=== PATIENT | male | born 1960 | race Caucasian/White ===

== ENCOUNTER 2019-11-23 10:20 | Inpatient (IN) ==
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
[~2019-11-23 10:20] MED LIST: ACETAMINOPHEN 500 MG TAB PO SCH; CEFAZOLIN 3000MG 72.5 ML IV SCH; CeleBREX 200 MG CAP PO SCH; FAMOTIDINE 20 MG TAB PO SCH; GABAPENTIN 600 MG DOSE PO SCH; LR 500ML BOLUS, THEN 15ML/HR IV SCH; METOCLOPRAMIDE HCL 10 MG TABLET PO SCH; ROPIVACAINE 0.5% HCL/PF 150 MG, BUPIVACAINE 0.5% MPF 30 ML, EPINEPHrine 30MG/30ML (OR U... INSTIL SCH; TRANEXAMIC ACID 1,000 MG **IV Intra-op IV SCH; TRANEXAMIC ACID 1,000 MG **IV Pre-op IV SCH; dexAMETHasone 4 MG TAB PO SCH
[2019-11-23] MEDS ORDERED: ROPIVACAINE 0.5% 5 MG/ML 30 ML VIAL ONE (10:34)
[2019-11-23] MEDS ORDERED: EPINEPHrine INJ 1 MG/ML AMP ONE (10:35)
[2019-11-23] MEDS ORDERED: BUPIVACAINE 0.5 % 5 MG/1 ML PF 10ML VIAL ONE (10:35)
[2019-11-23] MEDS ORDERED: fentaNYL citrate 100 MCG/2 ML VIAL ONE (10:52)
[2019-11-23] MEDS ORDERED: MIDAZOLAM HCL 1 MG/ML 2ML VIAL ONE ×2 (10:52)
[2019-11-23] MEDS ORDERED: fentaNYL citrate 100 MCG/2 ML VIAL IV PRN (11:49)
[2019-11-23] MEDS ORDERED: HYDROmorphone INJ 1 MG/ML SYRINGE IV PRN (11:49)
[2019-11-23] MEDS ORDERED: ONDANSETRON INJ 2 MG/ML 2 ML VIAL IV PRN ×2 (11:49→16:07)
[2019-11-23] MEDS ORDERED: ATROPINE SULFATE 0.1 MG/ML 10ML SYR IV PRN (11:49)
[2019-11-23] MEDS ORDERED: ePHEDrine sulfate 50 MG/ML AMP IV PRN (11:49)
[2019-11-23] MEDS ORDERED: BACITRACIN INJ 50,000 UNIT VIAL ONE (11:59)
[2019-11-23] MEDS ORDERED: ORTHO JOINT ANESTHETIC ONE (11:59)
--- NOTE | 2019-11-23 12:16 | History & Physical Bridge Note ---
Date of Service November 23, 2019 History & Physical Bridge Note I have examined the patient, reviewed the History & Physical and in the interval since the performance of the History & Physical I have noted the following changes of clinical significance: no changes noted
[2019-11-23] MEDS ORDERED: PROPOFOL IV EMULSION 10 MG/ML 20 ML VIAL IV ONE ×3 (13:01→13:45)
[2019-11-23] MEDS ORDERED: LIDOCAINE HCL 2% 2 ML VIAL/AMP(20MG/ML) INFIL ONE (13:01)
--- NOTE | 2019-11-23 14:19 | Post Operative Brief Note ---
Immediate Post Op Note v1 Date of Surgery November 23, 2019 Pre & Post Diagnosis Operation Date: 09/28/19 11:10 <No data on this case meets the specified criteria> Operation Date: 11/23/19 13:00 Pre-Op Diagnosis: Left Knee Degenerative Joint Disease Post-Op Diagnosis: Left Knee Degenerative Joint Disease I identified the patient and participated in the time-out.: Yes Procedure Operation Date: 09/28/19 11:10 <No data on this case meets the specified criteria> Operation Date: 11/23/19 13:00 Actual Procedures p Left Total Knee Arthroplasty(Left) - Jitendra Robles DO Surgeon Jitendra Robles DO Party Host Marvin Villalobos Estimated Blood Loss 45 Findings Consistent with Post-Op Diagnosis Fluids 1350 cc LR Specimens Proximal tibia and distal femur bone cuts. Anesthesia Type Spinal MAC Complications none Disposition Disposition: Recovery Room Overlapping Procedure I was present for: the critical portions of procedure. I was immediately available: during the entire case. Back up surgeon: was not required during procedure.
--- NOTE | 2019-11-23 14:23 | Operative Report ---
Post Operative Report Pre & Post Diagnosis Operation Date: 09/28/19 11:10 <No data on this case meets the specified criteria> Operation Date: 11/23/19 13:00 Pre-Op Diagnosis: Left Knee Degenerative Joint Disease Post-Op Diagnosis: Left Knee Degenerative Joint Disease I identified the patient and participated in the time-out.: Yes Procedure Operation Date: 09/28/19 11:10 <No data on this case meets the specified criteria> Operation Date: 11/23/19 13:00 Actual Procedures p Left Total Knee Arthroplasty(Left) - Jitendra Robles DO Surgeon Jitendra Robles DO Department Manager Marvin Villalobos Estimated Blood Loss 45 Findings Consistent with Post-Op Diagnosis Fluids 1350cc LR Specimens Proximal tibia and distal femur bone cuts Anesthesia Type Spinal MAC Complications none Disposition Disposition: Recovery Room Indications The patient is a 59-year-old male presents with long history of severe left knee tricompartmental DJD and failed outpatient conservative treatments including NSAIDs, bracing, injections and home walking/exercise program. The patient's symptoms have progressed to the point where it has been difficult to perform normal activities of daily living. I have indicated the patient for a left total knee arthroplasty, the risks and benefits and complications of the procedure include but are not limited to infection bleeding damage to bone, nerves, vessels, surrounding soft tissue, blood clots, loss of function, leg length discrepancy, dislocation, failure of the components, need for additional surgery and . The patient wished to proceed with surgery at this time and informed consent was obtained. Appropriate clearances were obtained. Description of Procedure The patient was taken to the operating room and appropriate spinal anesthesia was administered. She was placed supine on the operating room table. A foot roll was placed so we could flex the knee during the procedure as needed. A pneumatic tourniquet was placed on the proximal aspect of the thigh. The left lower extremity was prepped and draped in usual sterile fashion. A timeout was performed, patient and site david verified and IV antibiotics given. The leg was elevated, exsanguinated with Esmarch bandage. Pneumatic tourniquet was raised to 300 mmHg. A longitudinal midline incision was made over the anterior knee. Skin was incised sharply and subcutaneous flaps were elevated. Incision was made through the medial retinaculum extended up in the mid third of the quadriceps tendon and extended down to the medial tibial tubercle. The [employer]hew Journey 2.0 total knee arthroplasty system was used using [facility] MRI templating and her femur sized for a 8, tibial sized for a 7. To expose the knee the infrapatellar fat pad was resected. The lateral synovial bands were released. The cruciate ligaments were resected. The meniscal remnants were resected. The fat pad over the anterior femur just above the articular surface for placement of the component in that area was resected. The knee was flexed and retractors were placed and the custom femoral cutting block was pinned in position and the distal femoral cut was made. Next, the femoral cutting guide was removed and the size 8, 5-in-1 cutting block was pinned into place and the anterior, posterior and chamfer cuts were made. The 5-in-1 cutting block was removed. Next, attention was taken back to the tibia which was subluxed anteriorly and the custom tibial cutting block was pinned in position and the proximal tibial cut was made. The tibia guide was removed and proximal tibial bone fragment removed utilizing straight osteotome, electrocautery and mariaelena. Laminar electronic device repairer was placed laterally and the ACL and PCL were removed followed by the medial meniscus and posterior medial osteophytes. Aquamantys was utilized for any posterior medial bleeders and Orthomix injected into the posterior medial capsule. A laminar electronic device repairer was then placed in the medial compartment and the lateral meniscus and posterior osteophytes were removed. Aquamantys was utilized for any posterior lateral bleeders and Orthomix injected into the posterior lateral capsule. Next, ligamentous balance was assessed in extension and flexion utilizing spacer block and drop peggy. At this time, the tibia was then resubluxed and the 7 tibial trial was placed in position, the decision was made to utilize a size 8 tibia trial which provided better fit of the proximal tibia with appropriate external rotation in relationship to the tibial tubercle. The tibial drill and punch for the stem was used. Next the 8 femoral trial was inserted, centered and the notch cutting devices were used to finish prepping the femur. A trial 10 mm tibial articulating surface was inserted assessed ligamentous balance, the tibial size was increased sequentially testing for knee balance in full ROM, varus/valgus. The 10 trial insert gave balanced ligaments through full range of motion. At this time the knee was extended and a subperiosteal peel lateral release was performed around the patella. Patella width was measured and the patella was prepped utilizing free hand technique and the 3 drill holes were made for the pegs. The excess lateral facet was beveled off to prevent any impingement. A 38 mm oval patella button was placed and the patella tracked centrally. The trials were removed and the knee was copiously irrigated with pulsatile lavage antibiotic solution with bacitracin. The final components were then cemented into place and trial tibial articulating surface inserted. Final components were the 4 Oxinium posterior stabilized Christ[employer]hew Journey 2.0 left femoral component, size 3 primary tibial baseplate and 32mm patella. Once the cement cured, we trialed once more with the 10 mm tibial articulating surface and found the knee to be stable throughout full ROM. The trial component was removed and the final 10 mm tibial articular surface was inserted. Mariella-incisional soft tissue was injected utilizing [place] Orthomix which includes a combination of Ropivicaine 0.5% 150mg, Bupivicaine 0.5%/Epinephrine 1:200,000 30ml, Toradol 30mg, Dexamethasone 4mg, Ketamine 10mg, Clonidine 100mcg and NSS 30ml solution. A Betadine soak was performed. After 3 minutes, the hip was once more irrigated with copious sterile saline solution with bacitracin. The medial retinaculum were closed with interrupted [id number] #1 Vicryl sutures. The knee was taken through full range of motion and repair was secure. Subcutaneous tissues were closed with interrupted 2-0 Vicryl sutures followed by 3-0 V lock and then the skin was closed with Prineo Dermabond skin closure system. The sterile dressings were applied and an Benny wrap from the foot to thigh. Tourniquet was let down at 111 minutes and the patient had good capillary refill to the extremity. The patient tolerated the procedure well and was taken to the PACU in stable condition. Due to the complex nature of the procedure, the entire surgery was performed with the operational assistance of Marvin Villalobos PA-C. The interior design assistant, under direct supervision, was involved in the actual performance of all aspects of the surgical procedure including patient positioning, hemostasis, tissue retraction, instrument management and wound closure. I attest to the content of the Intraoperative Record and any orders documented therein. Any exceptions are noted below.
--- NOTE | 2019-11-23 15:18 | XRay Report ---
XR knee LT 1 or 2V routine CLINICAL HISTORY: Surgical Post Op COMPARISON: None FINDINGS: Alignment of the total left knee arthroplasty is anatomic. There is no periprosthetic frac ture or unexpected radiopaque foreign body. IMPRESSION: Expected findings following total left knee arthroplasty. ACT 112: Negative or not required by law. Electronically signed by: Arpit Landa M.D. 11/23/2019 3:16 PM
--- NOTE | 2019-11-23 15:56 | Anesthesiology Progress Note ---
Date of Service November 23, 2019 Anesthesia Post Procedure Vital Signs Vital Signs: Temp Pulse Pulse Resp BP Pulse Ox 11/23/19 15:30 36.4 C L 72 16 147/88 H 94 11/23/19 15:20 36.4 C L 73 16 134/81 94 11/23/19 15:10 73 16 118/76 94 11/23/19 15:00 80 16 126/84 94 11/23/19 14:50 36.3 C L 16 131/77 96 11/23/19 11:05 37 C 66 18 158/99 H 97 Transfer of Care Handoff Completed per policy Notes Mental Status: alert / awake / arousable Patient Amnestic to Procedure: Yes Nausea / Vomiting: adequately controlled Pain: adequately controlled Airway Patency, RR, SpO2: stable & adequate BP & HR: stable & adequate Hydration State: stable & adequate Neuraxial Anesthesia: was administered and sensory block is resolving Anesthetic Complications: no major complications apparent and Pt Satisfied with anesthetic care
[2019-11-23] MEDS ORDERED: NALOXONE HCL 0.4 MG/1 ML VIAL/CARP IV PRN (16:07)
[2019-11-23] MEDS ORDERED: bisacodyL 10 MG SUPP PR PRN (16:07)
[2019-11-23] MEDS ORDERED: METOCLOPRAMIDE HCL INJ 5 MG/ML 2 ML VIAL IV PRN (16:07)
[2019-11-23] MEDS ORDERED: MAGNESIUM HYDROXIDE SUSP 30 ML UDC PO PRN (16:07)
[2019-11-23] MEDS ORDERED: HYDROmorphone INJ 0.5 MG/0.5 ML SYR IV PRN (16:07)
[2019-11-23] MEDS: SODIUM CHLORIDE 0.9% 1000ML 1,000 ML IV SCH (17:16)
[2019-11-23] MEDS: KETOROLAC TROMETHAMINE 15 MG/ML VIAL IV SCH ×2 (17:17→21:51)
[2019-11-23] MEDS ORDERED: CEFAZOLIN 3000MG/72.5 ML BAG IV SCH (20:00)
--- NOTE | 2019-11-23 20:38 | Orthopedic Progress Note ---
Date of Service November 23, 2019 Assessment & Plan (1) Degenerative joint disease of left knee: s/p L TKA -ancef x 24 -DVT ppx: SCDs, TEDs, ASA BID -WBAT LLE -PT/OT -PO XR demonstrates well aligned well fixed total knee prothesis, without fracture dislocation -am labs -DC planning Admission and Anticipated Discharge Date Admission Date: November 23, 2019 Subjective Post Operative Progress Note Patient seen sitting up in bed, comfortable, denies complaints, pain well controlled, no acute issues. Still feeling effects of spinal anesthesia Review of Systems Review of Systems: All systems reviewed & are unremarkable except as noted in HPI & below Constitutional: as per Subjective / HPI Physical Exam Physical Exam: LLE PE limited secondary to spinal anesthesia, +2 DP pulse, compartments soft NT, dressing CDI. Constitutional: WD/WN, vitals as above Results & Data ([facility]) Vital Signs (Past 12 Hours) Vital Signs Temp Pulse Pulse Pulse Resp BP Pulse Ox 11/23/19 18:54 36.6 C 86 16 138/90 92 11/23/19 18:20 87 16 137/87 100 11/23/19 16:42 36.5 C 77 16 154/117 H 100 11/23/19 16:16 36.4 C L 65 16 163/104 H 97 11/23/19 15:49 36.3 C L 73 15 162/99 H 98 11/23/19 15:30 36.4 C L 72 16 147/88 H 94 11/23/19 15:20 36.4 C L 73 16 134/81 94 11/23/19 15:10 73 16 118/76 94 11/23/19 15:00 80 16 126/84 94 11/23/19 14:50 36.3 C L 16 131/77 96 11/23/19 11:05 37 C 66 18 158/99 H 97
[2019-11-23] MEDS ORDERED: SENNA 8.6 MG TAB PO SCH (21:00)
[2019-11-23] MEDS ORDERED: LOSARTAN POTASSIUM 50 MG TAB PO SCH (21:00)
[2019-11-23] MEDS: ACETAMINOPHEN 500 MG TAB PO SCH (21:37)
[2019-11-23] MEDS: DOCUSATE SODIUM 100 MG CAP PO SCH (21:37)
[2019-11-23] MEDS: OXYCODONE HCL IR 5 MG TAB (IMMEDIATE RELEASE) PO PRN (21:55)
[2019-11-23] MEDS: CEFAZOLIN 3,000 MG in DEXTROSE 5% 50 ML IV SCH (22:05)
[2019-11-24] MEDS: SODIUM CHLORIDE 0.9% 1000ML 1,000 ML IV SCH (02:19)
[2019-11-24] MEDS: OXYCODONE HCL IR 5 MG TAB (IMMEDIATE RELEASE) PO PRN (04:40)
[2019-11-24] MEDS: CEFAZOLIN 3,000 MG in DEXTROSE 5% 50 ML IV SCH (04:40)
[2019-11-24] MEDS: KETOROLAC TROMETHAMINE 15 MG/ML VIAL IV SCH ×2 (05:20→10:31)
[2019-11-24] MEDS: ACETAMINOPHEN 500 MG TAB PO SCH ×2 (05:21→13:37)
[2019-11-24 06:52] LABS: Hematocrit (blood only) 39.6 % (42-52); Hemoglobin 13.4 g/dL (14.0-18.0); Mean Corpuscular Hemoglobin 30.5 pg (25-34); Mean Corpuscular Hgb Conc 33.8 g/dL (32-36); Mean Corpuscular Volume 90.2 fL (80-100); Mean Platelet Volume 11.4 fL (7.4-10.4); Platelet Count 195 K/uL (130-400); RDW Standard Deviation 42.6 fL (36.4-46.3); Red Blood Count 4.39 M/uL (4.7-6.1); White Blood Count 15.23 K/uL (4.8-10.8)
[2019-11-24 07:28] LABS: BUN Creatinine Ratio 18.3 (10-20); Est GFR (African American) 85.1; Est GFR (Non-African American) 73.4
--- NOTE | 2019-11-24 07:51 | Anesthesiology Progress Note ---
Date of Service November 24, 2019 Anesthesia Post Procedure Vital Signs Vital Signs: Temp Pulse Pulse Pulse Resp BP Pulse Ox 11/24/19 07:05 36.5 C 77 18 131/81 92 11/23/19 23:05 36.5 C 96 H 20 131/83 93 11/23/19 18:54 36.6 C 86 16 138/90 92 11/23/19 18:20 87 16 137/87 100 11/23/19 16:42 36.5 C 77 16 154/117 H 100 11/23/19 16:16 36.4 C L 65 16 163/104 H 97 11/23/19 15:49 36.3 C L 73 15 162/99 H 98 11/23/19 15:30 36.4 C L 72 16 147/88 H 94 11/23/19 15:20 36.4 C L 73 16 134/81 94 11/23/19 15:10 73 16 118/76 94 11/23/19 15:00 80 16 126/84 94 11/23/19 14:50 36.3 C L 16 131/77 96 11/23/19 11:05 37 C 66 18 158/99 H 97 Pain Intensity Left Knee: Pain Intensity: 2 Notes Mental Status: alert / awake / arousable and participated in evaluation Patient Amnestic to Procedure: Yes Nausea / Vomiting: adequately controlled Pain: adequately controlled Airway Patency, RR, SpO2: stable & adequate BP & HR: stable & adequate Hydration State: stable & adequate Neuraxial Anesthesia: was administered and sensory block resolved Anesthetic Complications: no major complications apparent
[2019-11-24] MEDS: DOCUSATE SODIUM 100 MG CAP PO SCH (08:14)
[2019-11-24] MEDS ORDERED: MULTIVITAMIN TAB PO SCH (09:00)
[2019-11-24] MEDS ORDERED: ASPIRIN 325 MG ECTAB PO SCH (09:00)
--- NOTE | 2019-11-24 10:08 | Orthopedic Progress Note ---
Date of Service November 24, 2019 Assessment & Plan (1) Degenerative joint disease of left knee: s/p L TKA POD#1 -ancef x 24 -DVT ppx: SCDs, TEDs, ASA BID -WBAT LLE -PT/OT -PO XR demonstrates well aligned well fixed total knee prothesis, without fracture dislocation -am labs - as above, hgb 13.4 -DC planning - home with HH Admission and Anticipated Discharge Date Admission Date: November 23, 2019 Subjective Post Operative Progress Note Patient seen sitting up in bed, comfortable, denies complaints, pain well controlled, no acute issues. Denies F/C/N/V/SOB/CP. Review of Systems Review of Systems: All systems reviewed & are unremarkable except as noted in HPI & below Constitutional: as per Subjective / HPI Physical Exam Physical Exam: LLE NVSI +EHL/FHL/TA/GS SILT grossly, +2 DP pulse, compartments soft NT, dressing cdi. Constitutional: WD/WN, vitals as above Results & Data (MN) Vital Signs (Past 12 Hours) Vital Signs Temp Pulse Resp BP Pulse Ox 11/24/19 07:05 36.5 C 77 18 131/81 92 11/23/19 23:05 36.5 C 96 H 20 131/83 93 Laboratory Results 11/24/19 11/24/19 11/24/19 Range/Units 06:24 06:24 06:24 WBC 15.23 H (4.8-10.8) K/uL RBC 4.39 L (4.7-6.1) M/uL Hgb 13.4 L (14.0-18.0) g/dL Hct 39.6 L (42-52) % MCV 90.2 (80-100) fL MCH 30.5 (25-34) pg MCHC 33.8 (32-36) g/dL RDW Std Deviation 42.6 (36.4-46.3) fL RDW Coeff of [place] 13.0 (11.5-14.5) % Plt Count 195 (130-400) K/uL MPV 11.4 H (7.4-10.4) fL Sodium 142 (136-145) mmol/L Potassium 4.0 (3.5-5.1) mmol/L Chloride 111 H (98-107) mmol/L Carbon Dioxide 24 (21-32) mmol/L Anion Gap 7.0 (3-11) BUN 20 H (7-18) mg/dl Creatinine 1.09 (0.6-1.4) mg/dl Est Cr Clr Drug Dosing 108.0 ml/min Est GFR ( Amer) 85.1 Est GFR (Non-Af Amer) 73.4 BUN/Creatinine Ratio 18.3 (10-20) Glucose 137 H (70-99) mg/dl Calcium 8.0 L (8.5-10.1) mg/dl Hepatitis C Ab Screen Pending Blood Type Antibody Screen 11/23/19 Range/Units 11:06 WBC (4.8-10.8) K/uL RBC (4.7-6.1) M/uL Hgb (14.0-18.0) g/dL Hct (42-52) % MCV (80-100) fL MCH (25-34) pg MCHC (32-36) g/dL RDW Std Deviation (36.4-46.3) fL RDW Coeff of [place] (11.5-14.5) % Plt Count (130-400) K/uL MPV (7.4-10.4) fL Sodium (136-145) mmol/L Potassium (3.5-5.1) mmol/L Chloride (98-107) mmol/L Carbon Dioxide (21-32) mmol/L Anion Gap (3-11) BUN (7-18) mg/dl Creatinine (0.6-1.4) mg/dl Est Cr Clr Drug Dosing ml/min Est GFR ( Amer) Est GFR (Non-Af Amer) BUN/Creatinine Ratio (10-20) Glucose (70-99) mg/dl Calcium (8.5-10.1) mg/dl Hepatitis C Ab Screen Blood Type O Positive Antibody Screen NEGATIVE
--- NOTE | 2019-11-24 10:08 | Discharge Summary ---
Date of Service November 24, 2019 Admission HPI Per Admitting Provider The patient is a 59 year old male who presents with complaints of severe left knee pain and DJD. The patient has failed outpatient conservative treatments to this point which included NSAIDs, IA corticosteroid and COLVIN injections, PT and a home exercise/walking program. The patient's pain and limited function have progressed to the point where they severely hinder their activities of daily living and they no longer tolerate exercise programs. They are requesting to proceed with total knee replacement surgery. Principal Diagnosis Left total knee replacement Discharge Exam LLE NVSI +EHL/FHL/TA/GS SILT grossly, +2 DP pulse, compartments soft NT, dressing cdi. Constitutional WD/WN, vitals as above Discharge Data Allergies Allergy/AdvReac Type Severity Reaction Status Date / Time hydrocodone AdvReac Mild Hallucinati Verified 11/23/19 11:53 ng Consultations 11/23/19 16:07 Consult Case Management - Discharge Planning Routine Procedures Performed Operation Date: 09/28/19 11:10 <No data on this case meets the specified criteria> Operation Date: 11/23/19 13:00 Actual Procedures p Left Total Knee Arthroplasty(Left) - Jitendra Robles DO Ordered Studies 11/23/19 05:00 US guide needle placement Stat 11/23/19 12:03 US - OR guided needle placemen Routine Hospital Course (1) Degenerative joint disease of left knee: The patient is a 59 -year-old male who presents with long standing history of severe left knee DJD and failed outpatient conservative treatments. The patient's symptoms have progressed to the point where it has been difficult to perform even normal activities of daily living. I indicated the patient for a left total knee arthroplasty, the risks, benefits and complications of the procedure include but not limited to infection, bleeding, damage to bone, nerves, vessels, surrounding soft tissue, may develop blood clots, loss of function, leg length discrepancy, dislocation, failure of the components, loosening of the components, the need for additional surgery and . The patient wished to proceed with surgery at this time and informed consent was obtained. Hospital Course: On 11/23/19 the patient was taken to the operating room, adequate anesthesia administered and underwent a left total knee arthroplasty. The patient tolerate d the procedure well and was taken to the PACU in stable condition. Post- operatively the patient was started on a DVT ppx medication and given appropriate IV antibiotics. Consults were placed to physical therapy, occupational therapy and case management. On POD#1, the patient did well overnight and their pain was well controlled. Labs were drawn and the Hgb was 13.4. The patient progressed well with PT. Dressings were changed at this time and the incision was clean, dry and intact. The patients hospital stay was relatively uneventful and they were deemed stable by the orthopedic team and consultants to be discharged home with HH on 11/24/19. Discharge Instructions: Upon discharge the patient may weight bear as tolerates through their operative extremity. They were instructed to keep the incision clean and dry at all times. The patient may shower but should not submerge the incision, avoid bathing, pools and hot tubes. The patient was given a script for pain medication and should take as instructed. The patient was given a script for DVT ppx 325mg ASA BID and should take as directed. The patient was instructed to not drive or travel for long distances until cleared to do so. If the patient develops any symptoms of fevers, chills, nausea, vomiting, increased redness, swelling, pain or drainage from the surgical site, they should notify the office and/or proceed to the nearest emergency room. The patient should follow up in 10-14 days after surgery for their routine post-operative follow-up appointment and should call the office to confirm the date and time. s/p L TKA POD#1 -ancef x 24 -DVT ppx: SCDs, TEDs, ASA BID -WBAT LLE -PT/OT -PO XR demonstrates well aligned well fixed total knee prothesis, without fracture dislocation -am labs - as above, hgb 13.4 -DC planning - home with Total Time Total Time Spent Total Time Spent (In Minutes): 30 Discharge Plan Discharge Items Patient Disposition: Home - Home Health Services Reason For Visit: Left Knee Osteoarthritis Discharge Diagnosis: Left total knee replacement -Left knee DJD Condition on Discharge: Good Activity: Per Instructions section Lifting: Wait until after follow-up appointment Bathing: Keep incision dry Bathing Comment: No bathing, pools or hot tubs. Sexual Activity: Wait until after follow-up appointment Exercise/Sports: Wait until after follow-up appointment Driving/Machine Use: No driving. Weightbearing: Full weightbearing Non-emergency contact: Primary Care Provider and Surgeon Call non-emergency contact if: you have any medication questions, your symptoms worsen, your pain is not controlled, your pain is worsening, your pain is unusual for you, your pain is concerning for you, you have a fever, your temperature is above 101, your wound has increased redness, your wound has increased drainage and your wound pain has increased Follow-up/Referrals: Lucio Damian MD [Primary Care Provider] - Diet: Regular Addtl Attending Provider Instructions: ACTIVITY RECOMMENDATIONS: SELF CARE INSTRUCTIONS AFTER TOTAL KNEE REPLACEMENT A. You may need to continue a physical therapy program after discharge from the hospital. There are several options available to you. Your doctor will assist you in selecting the best one for you. 1. An out-patient facility 2 to 3 times a week for therapy or home therapy. 2. Continue working on all exercises taught to you in the hospital. Your goals should be to increase bending of your knee to 90 degrees and beyond and to fully straighten your knee. B. You may progress at your own pace from walking with a walker or crutches to a cane; then to no assistive devices. C. Make walking a part of your daily routine. Be up as much as comfortable with rest periods throughout the day. Rest with leg elevation is very important. Use the ice wrap frequently for the first 3-4 weeks. D. There are no restrictions on activities. 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 E. Wear the long elastic stockings (BARRETT hose) 20 hours a day for 2 weeks after surgery. They can be removed several times a day for laundering and for a bath. F. You may shower, no tub baths until cleared by your doctor. SPECIAL CARE INSTRUCTIONS: VERY IMPORTANT TO READ AND REVIEW A. There are a few signs you need to watch for after you are home. Call [facility] if you notice any of the followin. Increased severe knee pain. Some pain is expected especially when you exercise. 2. Increased swelling in your leg or knee; pain or swelling of the calf muscle in either lower leg. 3. Any fluid drainage from the incision. 4. Shortness of breath or chest pain. B. Please call [facility] at if you have any concerns or questions about your operation or recovery. The doctor or his nurse will return your call promptly. C. You must take antibiotics before dental work, bladder, bowel or other surgery. Your doctor will provide you with a permanent care to carry describing this precaution. IMPORTANT: * REMEMBER TO TAKE ASPIRIN, 325 MG, TWICE DAILY FOR 4 WEEKS UNLESS OTHERWISE DIRECTED. THIS IS YOUR BLOOD THINNER. * HIGH RISK PATIENTS MAY BE PRESCRIBED A STRONGER BLOOD THINNER. THIS WILL BE PROVIDED AT DISCHARGE. * CALL IF INCREASED PAIN, REDNESS, DRAINAGE OR FEVER GREATER THAT 101. * WEAR BARRETT HOSE 20 HOURS PER DAY FOR 2 WEEKS. *DERMABOND Prineo- This is a mesh tape dressing that is covered with glue. It should remain in place until the incision is properly healed, usually 10-14 days. This dressing is designed to naturally slough off. You may trim the excess mesh tape as it peels off. Incision may be briefly wet in a shower. Dry immediately by blotting with a clean, dry towel. Do not bath or swim until instructed by your doctor. Do not scratch, rub, or pick at the dressing. Do not apply any topical ointments or lotions until dressing is completely removed and/or instructed by your doctor. There may be a small piece of suture material at one end of your incision. Do not pull or trim this. If it is bothersome or catching on clothing, you may cover it with a band-aid. IF INCISION IS LEAKING THROUGH DRESSING, CALL THE OFFICE . FOLLOW UP VISIT: If appointment is not already scheduled: Please call [facility] to make a follow-up appointment for 2 weeks after your surgery at . Pending Studies at Discharge: No Stand-Alone Forms: My [facility], Smoking Cessation Medications and DC Order Prescriptions: New celecoxib [Celebrex] 200 mg Capsule 200 mg PO BID PRN (Reason: pain/inflammation) Qty: 28 RF: 0 acetaminophen 500 mg Tablet 1,000 mg PO Q8 PRN (Reason: pain/fevers) Qty: 90 RF: 0 aspirin [Ecotrin] 325 mg Tablet,Delayed Release (Dr/Ec) 325 mg PO BID Qty: 56 RF: 0 oxycodone 5 mg Tablet 5 mg PO Q6H MDD 4 PRN (Reason: pain) Qty: 30 RF: 0 sennosides [Senokot] 8.6 mg Tablet 17.2 mg PO HS PRN (Reason: constipation) Qty: 28 RF: 0 Continued losartan 50 mg Tablet 50 mg PO QPM RF: 0 Discontinued celecoxib [Celebrex] 100 mg Capsule 100 mg PO BID RF: 0 Discharge Orders: Discharge Order (Routine); Ordered 11/24/19 Ordered By: Marvin Villalobos Admission Data Admit Date/Time: 11/23/19 15:04 Attending Provider: Jitendra Robles Admit Provider: Jitendra Robles Primary Care Provider: Lucio Damian Other Providers: Ángel Trejo Other Interventions: Discharge Summary Assessment (RN) Last Done: 11/24/19 14:01 DC Date/Time DO NOT enter until pt leaves facility: 11/24/19 14:23
[2019-11-24] MEDS ORDERED: CeleBREX 200 MG CAP PO SCH (21:00)
== END 2019-11-24 14:23 | disposition home health service (06) | DRG 470 ==
LOC: ASU 10:20 → 3E 15:04

== ENCOUNTER 2023-07-26 07:33 | Observation (INO) ==
--- NOTE | 2023-06-26 09:07 | PAT Medication Instructions ---
Medication Instructions Date of Service June 26, 2023 Home Medications Medication Instructions Recorded amoxicillin 500 mg tablet 2,000 mg (4 x 500 mg) PO ONCE #4 02/01/23 tabs celecoxib 200 mg capsule (Celebrex) 200 mg PO BID #60 caps 06/10/23 losartan 50 mg tablet 100 mg PO QPM amoxicillin 500 mg tablet 2,000 mg (4 x 500 mg) PO ONCE celecoxib 200 mg capsule (Celebrex) 200 mg PO BID amlodipine 2.5 mg tablet 2.5 mg PO HS Continue as directed amoxicillin 500 mg tablet 2,000 mg (4 x 500 mg) PO ONCE ASK your surgeon for instructions celecoxib 200 mg capsule (Celebrex) 200 mg PO BID Take evening before surgery losartan 50 mg tablet 100 mg PO QPM amlodipine 2.5 mg tablet 2.5 mg PO HS Other Notes NOTHING TO EAT OR DRINK AFTER MIDNIGHT. If you have any questions please call us at [phone] or [phone] or [phone] or [phone]
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
[~2023-07-26 07:33] MED LIST changes: -ACETAMINOPHEN 500 MG TAB PO SCH; +BUPIVACAINE 0.5 % 5 MG/1 ML PF 10ML VIAL ONE; -CEFAZOLIN 3000MG 72.5 ML IV SCH; -CeleBREX 200 MG CAP PO SCH; -FAMOTIDINE 20 MG TAB PO SCH; -GABAPENTIN 600 MG DOSE PO SCH; -LR 500ML BOLUS, THEN 15ML/HR IV SCH; -METOCLOPRAMIDE HCL 10 MG TABLET PO SCH; +ROPIVACAINE 0.5% 5 MG/ML 30 ML VIAL ONE; -ROPIVACAINE 0.5% HCL/PF 150 MG, BUPIVACAINE 0.5% MPF 30 ML, EPINEPHrine 30MG/30ML (OR U... INSTIL SCH; -TRANEXAMIC ACID 1,000 MG **IV Intra-op IV SCH; -TRANEXAMIC ACID 1,000 MG **IV Pre-op IV SCH; -dexAMETHasone 4 MG TAB PO SCH
[2023-07-26] MEDS ORDERED: ONDANSETRON INJ 2 MG/ML 2 ML VIAL ONE (07:42)
[2023-07-26] MEDS ORDERED: PROPOFOL IV EMULSION 10 MG/ML 20 ML VIAL IV ONE ×3 (07:42→09:56)
[2023-07-26] MEDS ORDERED: MIDAZOLAM HCL 1 MG/ML 2ML VIAL ONE ×2 (07:42→09:11)
--- NOTE | 2023-07-26 08:04 | History & Physical Bridge Note ---
Date of Service July 26, 2023 History & Physical Bridge Note I have examined the patient, reviewed the History & Physical and in the interval since the performance of the History & Physical I have noted the following changes of clinical significance: no changes noted
[2023-07-26] MEDS ORDERED: fentaNYL citrate PF 100 MCG/2 ML VIAL IV PRN (08:25)
[2023-07-26] MEDS ORDERED: ePHEDrine sulfate 50 MG/ML AMP IV PRN (08:25)
[2023-07-26] MEDS ORDERED: ONDANSETRON INJ 2 MG/ML 2 ML VIAL IV PRN ×2 (08:25→12:10)
[2023-07-26] MEDS ORDERED: ATROPINE SULFATE 0.1 MG/ML 10ML SYR IV PRN (08:25)
[2023-07-26] MEDS: GABAPENTIN 600 MG DOSE PO SCH (08:33)
[2023-07-26] MEDS: FAMOTIDINE 20 MG TAB PO SCH (08:33)
[2023-07-26] MEDS: dexAMETHasone**PF** 10 MG/ML VIAL IV SCH (08:33)
[2023-07-26] MEDS: LR 500ML BOLUS, THEN 15ML/HR IV SCH (08:39)
[2023-07-26] MEDS: TRANEXAMIC ACID 1,000 MG **IV Pre-op IV SCH (08:51)
[2023-07-26] MEDS ORDERED: fentaNYL citrate PF 100 MCG/2 ML VIAL ONE (09:04)
[2023-07-26] MEDS ORDERED: GLYCOPYRROLATE 0.2 MG/ML VIAL ONE (09:26)
[2023-07-26] MEDS ORDERED: PHENYLEPHRINE 100MCG/ML 10ML SYR IV ONE (09:27)
[2023-07-26] MEDS: ROPIV 0.5% 246mg, Ketorolac 30mg, EPINEPHrine 0.5mg in NSS INFIL SCH (09:32)
[2023-07-26] MEDS ORDERED: ePHEDrine sulfate 50 MG/5 ML SYR ONE (09:34)
--- NOTE | 2023-07-26 11:19 | Operative Report ---
PG Post Operative Report Pre & Post Diagnosis Operation Date: 07/26/23 09:00 Pre-Op Diagnosis: Degenerative Joint Disease Right Knee Post-Op Diagnosis: Degenerative Joint Disease Right Knee I identified the patient and participated in the time-out.: Yes Procedure Operation Date: 07/26/23 09:00 Actual Procedures p Right Total Knee Arthroplasty(Right) - Edwin Underwood DO Surgeon Edwin Underwood DO Software Specialist Edwin Thornton PA-C Estimated Blood Loss 30 Findings Consistent with Post-Op Diagnosis Specimens Right femoral and tibial bone Description of Procedure Implants used: I used a Alex Persona total knee arthroplasty system with a size 10 PS standard femur, F tibia, 34 oval patella, and a size 14 CPS polyethylene bearing. All components were cemented in place with Biomet cement. Daniel arrived [facility] for the above procedure. He was seen in the preoperative holding area and the operative extremity was identified and signed. He was given a preoperative antibiotic, TXA, a spinal anesthetic and an adductor nerve block. He was taken back to the operating room and laid on the table in supine position. He was given basic sedation. The operative knee was then prepped and draped in sterile fashion. A timeout was done, and the patient and the operative extremity was properly identified. A midline incision was made directly over the patella. Dissection was taken down to the extensor mechanism. A midvastus arthrotomy was used. The medial retinaculum was released and the fat pad was mostly excised. The knee was flexed and the ACL, PCL, and meniscus were removed. A drill was sent down the center of the femoral canal followed by an intramedullary peggy. Off that peggy a distal femoral cutting block was placed. 9 mm was resected off the distal femur at 5 of valgus. A posterior referencing AP sizing guide was then placed on the distal femur. The femur measured to be a size 10. 2 drill holes were placed in 3 of external rotation. A 4-in-1 cutting block was then impacted into place. Anterior, posterior, and chamfer cuts were then made. The proximal tibia was then exposed. An external tibial alignment guide was placed. A tibial cut guide was then anchored in place and the proximal tibia was then resected. The posterior aspect of the knee was then opened up and any additional meniscus fragments and osteophytes were removed. The tibia measured to be a size F. The tibial plate was then placed in the appropriate rotation and the tibia was drilled and punched. Trial components were then placed. I used a size 14 CPS polyethylene insert. The knee was brought through a full range of motion and felt to be stable. The peg holes for the femoral component were then drilled. The patella was then everted and 9 mm was resected off the posterior aspect of the patella. The patella measured to be a size 34 oval. 3 peg holes were then drilled. A trial patella was placed. The knee was once again brought through a full range of motion and felt to be stable. Trial components were then removed. The surrounding soft tissues were injected with 100 cc of an orthopedic pain control cocktail. All components were then cemented into place with Biomet cement. The final polyethylene insert was then snapped into place. Once cement was dry the tourniquet was deflated. Hemostasis was obtained. A dilute betadyne lavage was then done for 3 minutes. The joint was then irrigated with normal saline solution. The midvastus arthrotomy was then closed with #1 Vicryl suture. The skin was closed with 2-0 Vicryl, 3-0V lock suture, and pramod. A soft compressive dressing was placed. He was then transferred to a hospital bed and taken to the postanesthesia care unit in stable condition. He tolerated the procedure well. Edwin Thornton PA-C, was present for the entire procedure. He was critical for patient positioning, prepping, draping, retraction exposure, wound closure and application of sterile dressing. I attest to the content of the Intraoperative Record and any orders documented therein. Any exceptions are noted below.
--- NOTE | 2023-07-26 11:24 | XRay Report ---
TWO VIEWS RIGHT KNEE CLINICAL HISTORY: Postoperative examination. FINDINGS: AP and crosstable lateral portable views of the right knee are obtained. A right knee arthr oplasty is in near anatomic alignment. There has been undersurface remodeling of the patella. No acut e fracture is seen. There are expected postoperative changes around the knee including skin clips, so ft tissue edema, and subcutaneous gas. IMPRESSION: Expected postoperative changes status post right knee arthroplasty. No acute fracture is seen. ACT 112: Negative or not required by law. Electronically signed by: Alex Tate M.D. 07/26/2023 11:23 AM
--- NOTE | 2023-07-26 11:46 | Anesthesiology Progress Note ---
Date of Service July 26, 2023 Anesthesia Post Procedure Vital Signs Vital Signs: Temp Pulse Pulse Resp BP Pulse Ox O2 Del Method 07/26/23 11:30 60 14 119/78 93 Oxymask 07/26/23 11:20 62 14 116/76 92 Oxymask 07/26/23 11:10 60 12 118/75 94 Oxymask 07/26/23 11:00 62 14 118/75 94 Oxymask 07/26/23 10:50 65 16 110/74 98 Oxymask 07/26/23 10:43 98.1 F 72 12 101/68 95 Oxymask 07/26/23 08:02 97.7 F 75 16 157/100 H 98 Room Air O2 Flow Rate 07/26/23 11:30 2 07/26/23 11:20 2 07/26/23 11:10 2 07/26/23 11:00 5 07/26/23 10:50 10 07/26/23 10:43 14 07/26/23 08:02 Transfer of Care Handoff Completed per policy Notes Mental Status: alert / awake / arousable and participated in evaluation Patient Amnestic to Procedure: Yes Nausea / Vomiting: adequately controlled Pain: adequately controlled Airway Patency, RR, SpO2: stable & adequate BP & HR: stable & adequate Hydration State: stable & adequate Neuraxial Anesthesia: was administered and sensory block is resolving Anesthetic Complications: no major complications apparent and Pt Satisfied with anesthetic care
[2023-07-26] MEDS ORDERED: HYDROmorphone INJ 0.5 MG/0.5 ML SYR IV PRN (12:10)
[2023-07-26] MEDS ORDERED: bisacodyL 10 MG SUPP PR PRN (12:10)
[2023-07-26] MEDS ORDERED: NALOXONE HCL 0.4 MG/1 ML VIAL/CARP IV PRN (12:10)
[2023-07-26] MEDS ORDERED: MAGNESIUM HYDROXIDE SUSP 30 ML UDC PO PRN (12:10)
[2023-07-26] MEDS ORDERED: METOCLOPRAMIDE HCL INJ 5 MG/ML 2 ML VIAL IV PRN (12:10)
[2023-07-26] MEDS: LR 60ML/HR IV SCH (12:28)
[2023-07-26] MEDS: ORTHO JOINT ANESTHETIC ONE (12:28)
[2023-07-26] MEDS: TRANEXAMIC ACID 1,000 MG **IV Intra-op IV SCH (12:28)
[2023-07-26] MEDS: KETOROLAC 30 MG/ML VIAL IV SCH (12:43)
[2023-07-26] MEDS: SODIUM CHLORIDE 0.9% 1,000 ML IV SCH (12:43)
[2023-07-26] MEDS: ACETAMINOPHEN 500 MG TAB PO SCH (14:19)
[2023-07-26] MEDS: oxyCODONE HCL IR 5 MG TAB (IMMEDIATE RELEASE) PO PRN (16:15)
[2023-07-26] MEDS: ceFAZolin 2000MG 2,000 MG/15 ML SYR IV SCH (18:19)
[2023-07-26] MEDS: LOSARTAN POTASSIUM 50 MG TAB PO SCH (20:05)
[2023-07-26] MEDS: amLODIPine BESYLATE 5 MG TAB PO SCH (20:05)
[2023-07-26] MEDS: SENNA 8.6 MG TAB PO SCH (20:05)
[2023-07-26] MEDS: DOCUSATE SODIUM 100 MG CAP PO SCH (20:05)
[2023-07-26] MEDS: ASPIRIN 81 MG ECTAB PO SCH (20:05)
--- OUTSIDE RECORDS SUMMARY | 2023-07-27 06:11 | External Medical Summary | Summary of Care ---
Author Name Unknown Organization [facility] Address [address] [place] [address] Phone [phone] Care Team Providers Care Insurance Instructor Name Role Phone Lucio Damian MD Primary Care Provider + Reason for Visit * Reason Comments Outpatient Testing Encounter Details Date Type Department Care Team (Late st Contact Info) Description 07/02/2023 8:40 AM EST Laboratory Laboratory, [facility] [address] [place] [id number] [facility] [address] [place] [address] Arrived Allergies Active Allergy Reactions Criticality Noted Date Comments Hydrocodone Other (Please comment) Low 11/23/2019 documented as of this encounter (statuses as of 07/02/2023) Medications Medication Sig Dispensed Refills Start Date End Date Status nystatin 326999 UNIT/GM cream Apply to affected area once daily. 0 06/12/2019 Active Celecoxib 100 MG Oral Capsule (CeleBREX)Indication s:Chronic pain of both knees TAKE 1 CAPSULE BY MOUTH TWICE A DAY 180 Capsule 1 09/04/2022 Active Losartan Potassium 100 MG Oral Tablet (Cozaar)Indications: Essential hypertension with goal blood pressure less than 140/90 TAKE 1 TABLET BY MOUTH EVERY DAY 90 Tablet 3 03/21/2023 Active amLODIPine Besylate 2.5 MG Oral Tablet (Norvasc)Indications :HTN, goal below 140/90 TAKE 1 TABLET BY MOUTH EVERY DAY 90 Tablet 3 04/23/2023 Active documented as of this encounter (statuses as of 07/02/2023) Active Problems Problem Noted Date Diagnosed Date Prediabetes 01/22/2023 Thoracic aortic aneurysm without rupture 023 Hepatic steatosis 01/03/2023 History of kidney stones 03/15/2021 Former tobacco use 06/25/2019 Ascending aortic aneurysm 06/25/2019 Essential hypertension with goal blood pressure less than 140/90 06/25/2019 HAYES on CPAP 05/28/2019 Nocturnal hypoxemia 05/28/2019 Diastolic dysfunction 02/13/2019 Knee pain, bilateral documented as of this encounter (statuses as of 07/02/2023) Resolved Problems Problem Noted Date Diagnosed Date Resolved Date Other emphysema 01/03/2023 01/21/2023 Complex renal cyst 12/28/2020 Lung nodule 12/21/2020 07/24/2022 MEDICATION USE AGREEMENT 05/29/2018 Arthralgia of both knees 10/19/201507/2018 Abdominal complaints 06/19/2014 019 Gaseous abdominal distention 06/19/2014 05/29/2018 DJD (degenerative joint disease) 04/05/2014 05/29/2018 Tobacco use disorder 04/05/2014 020 documented as of this encounter (statuses as of 07/02/2023) Immunizations Name Administration Dates Next Due Covid-19 Ad26, Single Dose (Neha/J&J) 10/08/2020 Pneumococcal Polysaccharide PPV23 (Pneumovax) 06/25/2019 Seasonal Influenza Virus Vac cine, Unspecified Formulation 05/29/2018 Seasonal Influenza, PF, 6 M & above, IM , (FluLaval or Fluzone) 03/15/2021,03/07/2020,06/25/2019,07/2018 TDAP (age 10 and older)(Boostrix) 10/19/2015 Zoster Vaccine Recombinant (Shingrix) 03/07/2020 ,06/25/2019 08/24/2019 documented as of this encounter Social History Tobacco Use Types Packs/Day Years Used Date Smoking Tobacco: Former Cigarettes 1 30 0 06/05/1979 - 03/11/2019 Smokeless Tobacco: Never Alcohol Use Standard Drinks/Week Comments Yes 12.5 (1 standard drink = 0.6 oz pure alcohol) PHQ-2 Answer Date Recorded PHQ Adult Total Score 0 07/24/2022 Hunger Vital Sign Answer Date Recorded Within the past 12 months, y ou worried that your food would run out before you got the money to buy more. Never true 07/24/19 23 Within the past 12 months, t he food you bought just didn't last and you didn't have money to get more. Never true 07/24/2022 Sex and Gender Information Value Date Recorded Sex Assigned at Male 06/25/2019 10:20 AM EST Gender Identity Male 06/25/2019 10:20 AM EST Sexual Orientation Straight 06/25/2019 10 :20 AM EST Job Start Date Occupation Industry Not on file Not on file Not on file documented as of this encounter Plan of Treatment Upcoming Encounters Date Type Department Care Team (Late st Contact Info) Description 08/05/2023 10:40 AM EDT Office Visit General Internal Medicine [facility] [address] [facility] [place] [address] Lucio Damian MD [address] [facility] [place] [id number] 08/20/2023 8:00 AM EDT Telemedicine Sleep Disorders Ctr [facility] [address] [facility] [place] [phone] Raisa Christy DO [address] [facility] [place] [id number] Scheduled Procedures Name Priority Associated Diagnoses Date/Ti me COLONOSCOPY FLEXIBLE PROXIMAL DIAGNOSTIC Recall History of colon polyps Health Maintenance Due Date Last Done Comments COVID-19 Vaccine ( season) 2023 10/08/2020 Influenza Vaccine (FLU shot) (#1) 2023 03/15/2021, 03/07/2020, 06/25/2019, Additional history exists Depression Screening 07/24/2023 07/24/2022 Albumin/Creatinine Ratio 12/24/2023 12/23/2020 GFR 01/22/2024 01/21/2023, 07/25, 12/28/2020, Additional history exists HbA1c 01/22/2024 01/21/2023 COLONOSCOPY-EVERY 3 YRS AGES 18-100 10/10/2024 10/10/2021, 10/10/2021 DTaP,Tdap,and Td Vaccines (2 - Td or Tdap) 10/18/2025 10/19/2015 Lipid Panel 08/08/2027 08/07/2022, 11/26, 07/03/2019, Additional history exists Pneumococcal Vaccine: Pediatrics (0 to 5 Years) and At-Risk Patients (6 to 64 Years) Aged Out 06/25/2019 No longer eligible based on patient's age to complete this topic Zoster Vaccines Completed 03/07/2020, 06/25/2019 Cologuard Discontinued 07/29/2021, 06/28, 07/24/2021 Colonoscopy Discontinued 10/10/2021, 10/10/2021 Colorectal Cancer Screening Discontinued LUNG CANCER SCREENING - USE SMARTSET 11029 Completed 04/10/2022, 04/04/2021, 12/30/2019, Additional history exists Fecal Occult Blood Test Discontinued GARDASIL-HPV IMMUNIZATION SERIES Aged Out No longer eligible based on patient's age to complete this topic Hepatitis B Aged Out No longer eligi ble based on patient's age to complete this topic MENINGOCOCCAL (MENACTRA/MENVEO) Aged Out No longer eligible based on patient's age to complete this topic Sigmoidoscopy Discontinued documented as of this encounter Medical Devices Not on filedocumented as of this encounter Care Teams Insurance Instructor Relationship Specialty Start Date End Date Lucio Damian MD [address] [place] [address] PCP - General Internal Medicine 05/29/18 documented as of this encounter
--- NOTE | 2023-07-27 06:38 | Orthopedic Progress Note ---
Date of Service July 27, 2023 Assessment & Plan (1) Status post right knee replacement: Overall he is doing very well. He is not having much pain in the right knee. He will be seen by physical therapy today for ambulation and range of motion exercises. His dressing can be changed after physical therapy. He is on aspirin for DVT prophylaxis. He can be discharged home later today. He will follow-up with orthopedics in 2 weeks. Randell Sanchez was seen and examined at bedside this morning. Overall he is doing very well. He is not having much pain in the right knee. He has been up and ambulating to the bathroom. He has no complaints.. Review of Systems All systems reviewed & are unremarkable except as noted in HPI & below. Physical Exam On physical examination of the right knee, the dressing is clean and dry. His legs out full extension. He is active dorsiflexion and plantarflexion of his right ankle.. Results & Data Results & Data Laboratory Results . Diagnostic Findings Postoperative x-rays of the right knee show the prosthesis to be in anatomic alignment without any evidence of fracture complication, or loosening.. PG Care Time/CCT Total # of Minutes Spent Total Time Spent with Patient: Total time spent is greater than 50% in coordination of care (as documented) at patient's floor/unit and/or counseling patient: Coding Level of Care Code 89283 Post Operative Follow-Up Diagnoses Status post right knee replacement Z96.651
--- NOTE | 2023-07-27 06:39 | Discharge Summary ---
Date of Service July 27, 2023 Admission HPI (Per Admitting) Daniel is a pleasant 62-year-old male who I did hip replacement on in the past. He has done well with that. He has a history of a left knee replacement done by Dr. Robles in 2019. He still has some soreness with that. He has been dealing with right knee pain. He has developed a varus deformity in his right knee. It hurts him all the time. He is planning to move to [place] later in the summer. X-rays and clinical examination been diagnostic for chronic osteoarthritis of the right knee. After failing conservative treatment, he has elected to proceed with a right total knee arthroplasty. Admission Exam (Per Admitting) On physical examination the right knee, he has a significant varus deformity. He has tenderness palpation of the distal medial femoral condyle and over the medial joint line.. Principal Diagnosis Same as "Discharge Diagnosis" noted below under Discharge Instructions. Discharge Exam On physical examination of the right knee, the dressing is clean and dry. His legs out full extension. He is active dorsiflexion and plantarflexion of his right ankle.. Discharge Data Procedures Performed Operation Date: 07/26/23 09:00 Actual Procedures p Right Total Knee Arthroplasty(Right) - Edwin Underwood DO Ordered Studies 07/26/23 05:00 US - OR guided needle placemen Routine Hospital Course (1) Status post right knee replacement: On July 26, 2023 Daniel arrived at [facility] and underwent a right knee replacement without complication. He had a spinal anesthetic. Postoperatively he was started on aspirin for DVT prophylaxis and transferred to the general orthopedic floors. His hospital course was uneventful. On postop day #1, his vital signs were stable and his pain was well-controlled. He was able to participate well with physical therapy doing ambulation and range of motion exercises. He was then discharged home. He will follow-up with orthopedics in 2 weeks. PG Care Time/CCT Total # of Minutes Spent Total Time Spent with Patient: Total time spent is greater than 50% in coordination of care (as documented) at patient's floor/unit and/or counseling patient: Discharge Plan Discharge Items Patient Disposition: Home - Self-Care Reason For Visit: Degenerative Joint Disease Right Knee Discharge Diagnosis: Right knee replacement Activity: Per Instructions section Non-emergency contact: Surgeon Call non-emergency contact if: your wound has increased redness and your wound has increased drainage Follow-up/Referrals: Lucio Damian MD [Primary Care Provider] - Diet: Regular Addtl Attending Provider Instructions: Activity and Therapy Recommendations: * If you are using [facility] then therapy will be provided at your home until they feel you have accomplished all of your goals. * If you are using [facility] then Physical Therapy will be provided until they feel you are ready to start Outpatient Physical Therapy. * If you are not using home therapy then Outpatient Physical Therapy should start about 3-5 days from your day of surgery. Therapy will last about 6-10 weeks * It is important not to put a pillow under your knee when you are relaxing or sleeping. It is just as important to make sure you are getting your knee perfectly straight as it is to regain your knee bend. * You were shown a series of exercises in the hospital. Do these exercises three times each day including the exercises you were shown in physical therapy. * Get up and walk several times each day. For the first four weeks, try not to stand or walk for more than one hour at a time. If you do stand or walk for more than one hour, you will not hurt anything, but your leg will likely swell. * As you feel comfortable, you may change from the walker or crutches to a cane and then to independent walking. Medications: * Narcotic You will likely be sent home from the hospital with a prescription for the narcotic pain medication that worked best throughout your stay. * Cefadroxil -take the antibiotic twice a day for 10 days to help prevent infection. * Aspirin Most patients will be required to take Aspirin 81mg twice a day for 6 weeks after surgery. This is obtained [id number] and a prescription is not necessary. * Other medications may be prescribed for specific circumstances. If you have any questions, please call the office at . * Resume previous home medications unless otherwise instructed TEDs/Elastic Stockings: The white elastic stockings help limit swelling and prevent blood clots from forming in your legs.~ The more you wear them, the more they work. Wear them for six weeks. Dressing Care: The dressing can be changed after physical therapy on postop day #1. Daily dry dressing changes for a few days, especially if the incision is still draining some. If the incision is not draining then you may leave the pramod open to air. If there is a little bit of drainage or if the pramod are getting stuck on your clothing then cover the incision with a dry dressing. The pramod will be removed at your 2 week follow-up appointment. Showering: You may shower 5 days from the day of surgery as long as the incision is no longer draining. You may shower with the pramod exposed. Let soapy water run over the pramod and pat them dry. Do not scrub or soak the incision. Things To Watch For: * Drainage from the incision site that occurs more than one week after your surgery. * Increased redness at the incision site. * Fever above 102 degrees Fahrenheit. * Unusual chest pain or shortness of breath. * Call [facility] at with any of the above problems Follow-Up Visit: Follow-up with Dr. Underwood's PA (Edwin Thornton) 2-3 weeks after your day of surgery. He will remove your pramod and answer any questions. If you have any additional questions or concerns, Dr Underwood is usually in the office at the same time and will be available An appointment was probably scheduled when you signed-up for surgery in the office. If you have any questions call Office Instructions: More detailed instructions as well as Frequently Asked Questions were provided in a folder by our office when you signed-up for surgery. Please review these instructions when you get home. If you have any further questions or concerns, please feel free to call the office at [phone] Pending Studies at Discharge: No Stand-Alone Forms: [facility], Smoking Cessation Medications and DC Order Prescriptions: New oxycodone 5 mg Tablet 5 mg PO Q4H PRN (Reason: pain) Qty: 30 0RF cefadroxil 500 mg capsule 500 mg PO BID 10 Days Qty: 20 0RF aspirin 81 mg Tablet,Delayed Release (Dr/Ec) 81 mg PO BID 42 Days Qty: 0 0RF Continued celecoxib [Celebrex] 200 mg capsule 200 mg PO BID Qty: 60 1RF amoxicillin 500 mg tablet 2,000 mg PO ONCE Qty: 4 3RF Rx Instructions: 4 tabs 1 hour prior to procedure losartan 50 mg Tablet 100 mg PO QPM amlodipine 2.5 mg Tablet 2.5 mg PO HS Discharge Orders: Discharge Order (Routine); Ordered 07/27/23 Ordered By: Edwin Underwood Admission Data Admit Date/Time: 07/26/23 10:45 Attending Provider: Edwin Underwood Admit Provider: Edwin Underwood Primary Care Provider: Lucio Damian
[2023-07-27] MEDS: MULTIVITAMIN TAB PO SCH (07:46)
[2023-07-27] MEDS: dexAMETHasone 4 MG TAB PO SCH (07:47)
== END 2023-07-27 11:02 | disposition home or self-care (01) ==
LOC: 3E 07:33 → ASU 07:33
DX: G47.33 Obstructive sleep apnea (adult) (pediatric); Z88.5 Allergy status to narcotic agent; R73.03 Prediabetes; M25.761 Osteophyte, right knee; Z87.891 Personal history of nicotine dependence; I10 Essential (primary) hypertension; Z79.899 Other long term (current) drug therapy; Z79.1 Long term (current) use of non-steroidal anti-inflammatories (NSAID); M17.11 Unilateral primary osteoarthritis, right knee; M65.9 Synovitis and tenosynovitis, unspecified; I71.9 Aortic aneurysm of unspecified site, without rupture; J43.9 Emphysema, unspecified